=== PATIENT | male | born 1995 | race Caucasian/White ===

== ENCOUNTER 2018-05-22 20:47 | Emergency (ER) | payer OTHER ==
[2018-05-22 20:59] VITALS: BP 139/90
[2018-05-22] MEDS ORDERED: DEXAMETHASONE 4 MG TABLET PO ONE (22:19)
--- NOTE | 2018-05-22 22:19 | ER Document Report ---
ED General - General Chief Complaint: Sore Throat Stated Complaint: SORE THORAT Time Seen by Provider: 05/22/18 21:28 Notes: Patient is a 22-year-old male without chronic medical problems who presents with 3 days of sore throat. The patient describes as a sore, scratching, aching throat that is worsened with swallowing and eating. He has not trying to improve his symptoms. Denies fever but states that he has felt warm. States he is also felt generally fatigued. No known sick contacts. No history of similar symptoms in the past. He has not seen his general physician regarding today's concerns. Denies taking anything to treat his symptoms. No difficulty breathing or swallowing. - Related Data Allergies/Adverse Reactions: No Known Allergies Allergy (Unverified 05/22/18 20:57) Past Medical History - General Information source: Patient - Social History Smoking Status: Never Smoker Frequency of alcohol use: None Drug Abuse: None Lives with: Family Family History: Reviewed & Not Pertinent Patient has suicidal ideation: No Patient has homicidal ideation: No Renal/ Medical History: Denies: Hx Peritoneal Dialysis Review of Systems - Review of Systems Notes: Constitutional: Negative for fever. HENT: Positive for sore throat. Eyes: Negative for visual changes. Cardiovascular: Negative for chest pain. Respiratory: Negative for shortness of breath. Gastrointestinal: Negative for abdominal pain, vomiting or diarrhea. Genitourinary: Negative for dysuria. Musculoskeletal: Negative for back pain. Skin: Negative for rash. Neurological: Negative for headaches, weakness or numbness. 10 point ROS negative except as marked above and in HPI. Physical Exam - Vital signs Vitals: Temp Pulse Resp BP Pulse Ox 98.7 F 79 20 139/90 H 98 05/22/18 20:56 05/22/18 20:56 05/22/18 20:56 05/22/18 20:56 05/22/18 20:56 Interpretation: Normal Notes: PHYSICAL EXAMINATION: GENERAL: Well-appearing, well-nourished and in no acute distress. HEAD: Atraumatic, normocephalic. EYES: Pupils equal round and reactive to light, extraocular movements intact, sclera anicteric, conjunctiva are normal. ENT: nares patent, oropharynx clear without exudates. Mild pharyngeal erythema. Moist mucous membranes. NECK: Normal range of motion, supple without lymphadenopathy LUNGS: Breath sounds clear to auscultation bilaterally and equal. No wheezes rales or rhonchi. HEART: Regular rate and rhythm without murmurs ABDOMEN: Soft, nontender, normoactive bowel sounds. No guarding, no rebound. No masses appreciated. EXTREMITIES: Normal range of motion, no pitting or edema. No cyanosis. NEUROLOGICAL: No focal neurological deficits. Moves all extremities spontaneously and on command. PSYCH: Normal mood, normal affect. SKIN: Warm, Dry, normal turgor, no rashes or lesions noted. Course - Re-evaluation Re-evalutation: 05/22/18 22:19 Presentation of several days of sore throat in an otherwise well-appearing patient. Rapid strep is negative. History and exam are not consistent with a retropharyngeal abscess or peritonsillar abscess. Airway is patent. No difficulty handling oral secretions. Vitals within normal limits. Patient was treated with a dose of dexamethasone and advised on symptomatic care. Suspect likely viral pharyngitis. At this time will discharge with return precautions and follow-up recommendations. Verbal discharge instructions given a the bedside and opportunity for questions given. Medication warnings reviewed. Patient is in agreement with this plan and has verbalized understanding of return precautions and the need for primary care follow-up in the next 24-72 hours. - Vital Signs Vital signs: Temp Pulse Resp BP Pulse Ox 98.7 F 79 20 139/90 H 98 05/22/18 20:56 05/22/18 20:56 05/22/18 20:56 05/22/18 20:56 05/22/18 20:56 Discharge - Discharge Clinical Impression: Viral pharyngitis, Sore throat Condition: Good Disposition: HOME, SELF-CARE Additional Instructions: Your strep test is negative. Your symptoms are likely due to an viral infection and will resolve in the next 1-2 weeks. You have also been given a dose of steroids to help with your throat discomfort. Please continue to take ibuprofen 600 mg every 6 hours or Tylenol 1000 mg every 6 hours as needed for throat disc omfort. You can also gargle with salt water. Continue to drink plenty of fluids. Follow-up with your primary care doctor in the next several days. Return if you become unable to swallow, have difficulty breathing, pass out, have persistent vomiting that prevents you from being able to tolerate fluids, or have any other symptoms that are concerning to you.
== END 2018-05-22 22:45 | disposition home or self-care (01) ==
LOC: ER 20:47
DX: J02.8 Acute pharyngitis due to other specified organisms (principal); B97.89 Other viral agents as the cause of diseases classified elsewhere; R53.83 Other fatigue
CPT/HCPCS: 87070; 87880; 99283